=== PATIENT | female | born 1955 | race Two or more races ===

== ENCOUNTER → 2024-02-01 | Outpatient (CLI) | payer MEDICARE, MEDICAID, SELFPAY ==
--- NOTE | 2024-02-01 09:54 | XR_ITS ---
MRI shoulder, right, without contrast. Date and time: February 01, 2020 4:12 PM INDICATIONS: Right shoulder pain radiating to the right elbow 6 months Technique: Multiple axial, sagittal and coronal sections of the shoulder have been obtained. Siemens high-resolution 1.5 Aline MRI scanner is utilized. Axial fat-suppressed sections, TR 2350, TE 18 T2-weighted coronal fat-saturated images, TR 3500, TE 7100 T1-weighted coronal images, TR 500, TE 15 T2-weighted sagittal fat-saturated images, TR 3500, TE 57 T1-weighted sagittal sections, TR 504, TE 13. Findings: 14 mm full-thickness rotator cuff tear Subscapularis insertion is intact. Subscapularis bursa is evident. Long head of the biceps is in the bicipital groove. No definite tear of the biceps superior labral anchor is seen. Retraction of the musculotendinous junction of the rotator cuff is evident. Tendinosis pattern is moderate. Distance between the acromium and humeral head is 6 mm Atrophy of the supraspinatus muscle is severe. Atrophy of the infraspinatus muscle is moderate. Sagittal sections demonstrate a horizontal acromion. Acromioclavicular joint demonstrates moderate osteoarthritis. Osacromiale is not identified. Labral margins intact. Bony glenoid fossa on the sagittal sections does not demonstrate osseous defect. Occult fracture or area of avascular necrosis is not seen. Acromioclavicular joint separation is not visible. Defect in the posterolateral margin of the humeral head is not seen Impression: 14 mm full-thickness rotator cuff tear
== END | disposition home or self-care (01) ==
PROVIDERS: PCP Nurse Practitioner Primary Care; Referring Provider Nurse Practitioner Primary Care; Visit Provider Nurse Practitioner Primary Care
DX: M75.101 Unspecified rotator cuff tear or rupture of right shoulder, not specified as traumatic (principal)
CPT/HCPCS: 73221

== ENCOUNTER → 2024-06-05 | Outpatient (CLI) | payer MEDICARE, MEDICAID, SELFPAY ==
--- NOTE | 2024-06-05 12:05 | XR_ITS ---
Examination: Knee, right , 3 views Technique: Knee AP, lateral, oblique 3 views Date and time of exam: June 05, 2024 1421 hours INDICATIONS: Right knee pain beginning 3 years ago FINDINGS: Advanced tricompartment osteoarthritis, most severe medial joint space No fracture No patellar dislocation IMPRESSION: Advanced tricompartment osteoarthritis
== END | disposition home or self-care (01) ==
LOC: SDIA 11:52 → SDIM 06-06 09:34
PROVIDERS: PCP Nurse Practitioner Primary Care; Referring Provider Nurse Practitioner; Visit Provider Nurse Practitioner
DX: M17.11 Unilateral primary osteoarthritis, right knee (principal)
CPT/HCPCS: 73562

== ENCOUNTER 2024-08-18 12:03 | Emergency (ER) | payer MEDICARE, MEDICAID, SELFPAY ==
--- NOTE | 2024-08-18 12:11 | EKG_ITS ---
[facility] Test Date: 2024-08-18 Pat Name: MARGUERITE BORDEN Department: Room: - Gender: Female Skein Winder: : [id number] Requested By: Aris Mcdonald Order Number: [id number] Reading MD: Aris Mcdonald Measurements Intervals [place] Rate: 61 P: 89 MS: 167 QRS: -1 QRSD: 90 T: 9 QT: 397 QTc: 402 Interpretive Statements SINUS RHYTHM LOW QRS VOLTAGE IN PRECORDIAL LEADS [QRS DEFLECTION < 1.0 mV IN CHEST LEADS] VOLTAGE CRITERIA FOR LVH [MEETS CRITERIA IN ONE OF: R(aVL), S(V1), R(V5), R(V5/V6)+S(V1)] No previous ECG available for comparison /store/S0/[id number].pdf
[2024-08-18 12:32] VITALS: BP 160/81; PULSE 61; RESP 18; TEMP 36.7; O2SAT 97
--- NOTE | 2024-08-18 13:25 | XR_ITS ---
Examination: PA lateral chest 2 views TECHNIQUE: Upright PA lateral chest 2 views Date and time: August 18, 2024 1331 hours INDICATIONS: Chest pain today. FINDINGS: Minor subsegmental atelectasis left upper lobe Normal heart size No lobar pneumonia Moderate osteopenia IMPRESSION: Minor subsegmental atelectasis left upper lobe
--- NOTE | 2024-08-18 13:28 | PD.EDCHEST ---
ED Chest Pain RME/HPI General Chief Complaint: Chest Pain Stated Complaint: Chest pain to left arm, SOB X 2 hours Time Seen by Provider: 08/18/24 13:25 Arrival date/time: 08/18/24 12:03 RME / HPI RME / HPI narrative: 69-year-old female with a past medical history of hypertension and diabetes presents to the ED with a complaint of left anterior chest pain that occurred this morning at rest. She states she woke up normal without any pain and then developed a pressure type pain to the left anterior chest with radiation to the left shoulder and left arm. The pain was a 5?6/10 at its worst, lasting 1.5-2 hours, and is currently a 0/10. The pain is exacerbated by nothing and was alleviated after she took an aspirin and lifted her arm above her head. She denies any associated shortness of breath or nausea/vomiting. She denies any recent illness with fever, chills, cough, upper respiratory complaints, nausea or vomiting, diarrhea or abdominal pain. She denies any dysuria. She denies any previous occurrence of this type of pain. Related Data Home Medications ?Medication ?Instructions ?Recorded ?Confirmed aspirin 81 mg tablet,delayed 81 mg PO QDAY 02/26/20 02/26/20 release ertugliflozin 7.5 mg-metformin 1 tab PO BID 02/26/20 02/26/20 1,000 mg tablet (Segluromet) semaglutide 0.25 mg or 0.5 mg (2 0.25 mg subcut QWEEK 02/26/20 02/26/20 mg/1.5 mL) subcutaneous pen injector (Ozempic) Previous Rx's ?Medication ?Instructions ?Recorded buspirone 7.5 mg capsule 7.5 mg PO BID #20 caps 08/18/24 Allergies Allergy/AdvReac Type Severity Reaction Status Date / Time No Known Allergies Allergy Verified 08/18/24 12:08 Review of Systems Review of Systems Systems Reviewed: All systems reviewed, normal except as documented Past Medical History Past Medical History NEUROLOGIC: Negative Seizures CARDIAC: Negative Congestive Heart Failure RESPIRATORY: Negative Chronic Obstructive Pulmonary Disease (COPD) GENITOURINARY: Negative Renal Disease MUSCULOSKELETAL: Positive Arthritis ENDOCRINE: Positive Diabetes Mellitus Type 2; Negative Diabetes Mellitus Type 1 OTHER HISTORY: Negative Blood Transfusions, Blood Transfusion Reaction or Anesthesia Reactions Social History SMOKING STATUS: Never smoker ED Exam Narrative Physical exam: Alert and oriented, [place]an-speaking female, no acute distress. Vital signs blood pressure 160/81, pulse 61, respirations 18 and nonlabored, temperature 98.0, O2 sat 97% on room air. Lungs are clear, regular rate and rhythm without murmurs, no carotid bruits noted. No pain on palpation of the chest, no pain with AP or lateral chest compression. Abdomen is soft and nontender, no CVA tenderness. Moves all extremities well. Course Orders Category Date Time Status EKG (ED ONLY) *Do not use* NOW Care 08/18/24 12:11 Completed EKG (ED ONLY) *Do not use* NOW Care 08/18/24 17:37 Completed EKG (ED Only) Stat Exams 08/18/24 12:11 Draft EKG (ED Only) Stat Exams 08/18/24 17:36 Ordered XR chest 2V Stat Exams 08/18/24 13:25 Completed B-Type Natriuretic Peptide Stat Lab 08/18/24 13:43 Completed Beta Hydroxybutyrate Stat Lab 08/18/24 13:43 Completed CBC Stat Lab 08/18/24 13:43 Completed Comprehensive Metabolic Panel Stat Lab 08/18/24 13:43 Completed LDH (Lactate Dehydrogenase) Stat Lab 08/18/24 13:43 Completed Magnesium Stat Lab 08/18/24 13:43 Completed Partial Thromboplastin Time Stat Lab 08/18/24 13:43 Completed Prothrombin Time with INR Stat Lab 08/18/24 13:43 Completed Troponin I Stat Lab 08/18/24 13:43 Completed Urinalysis Stat Lab 08/18/24 15:08 Completed Morphine Inj Med 08/18/24 18:13 Discontinued 4 mg IM X1 ONE Vital Signs Vital signs: Vital Signs Temperature 98.0 F 08/18/24 12:32 Pulse Rate 61 08/18/24 12:32 Respiratory Rate 18 08/18/24 12:32 Blood Pressure 160/81 H 08/18/24 12:32 Pulse Oximetry (%) 97 08/18/24 12:32 Oxygen Delivery Method Room Air 08/18/24 12:32 Chest Pain MDM Narrative MDM Narrative:: 69-year-old female with a past medical history of hypertension and diabetes presents to the ED with a complaint of left anterior chest pain that occurred this morning at rest. She states she woke up normal without any pain and then developed a pressure type pain to the left anterior chest with radiation to the left shoulder and left arm. The pain was a 5?6/10 at its worst, lasting 1.5-2 hours, and is currently a 0/10. The pain is exacerbated by nothing and was alleviated after she took an aspirin and lifted her arm above her head. She denies any associated shortness of breath or nausea/vomiting. She denies any recent illness with fever, chills, cough, upper respiratory complaints, nausea or vomiting, diarrhea or abdominal pain. She denies any dysuria. She denies any previous occurrence of this type of pain. Alert and oriented, [place]an-speaking female, no acute distress. Vital signs blood pressure 160/81, pulse 61, respirations 18 and nonlabored, temperature 98.0, O2 sat 97% on room air. Lungs are clear, regular rate and rhythm without murmurs, no carotid bruits noted. No pain on palpation of the chest, no pain with AP or lateral chest compression. Abdomen is soft and nontender, no CVA tenderness. Moves all extremities well. Patient data External records reviewed:: None Clinical information provided by:: patient Social determinants that could affect healthcare access:: none Patient has the following chronic illnesses:: Diabetes, hypertension. How is presenting disease/condition affected by chronic disease/condition?: exacerbated by Evaluation data The following diagnostics were reviewed and interpreted by me:: lab results, radiology exam(s) and EKG tracing(s) Lab and/or radiology exams considered but not ordered:: N/A Medications / Prescriptions Medications or Prescriptions considered but not ordered:: Aspirin, nitro. Aspirin already taken at home. Nitro not given due to no current pain. Medication administrations:: Medication Administration History Discontinued Medications Morphine Sulfate (Morphine Sulf Inj 10 Mg/Ml Vial) 4 mg IM X1 ONE Stop: 08/18/24 18:14 Last Admin: 08/18/24 18:17 Dose: 4 mg Documented By: DAVID Diagnosis Chest Pain Differential Diagnosis: stable angina, unstable angina pectoris, atypical chest pain, st elevation myocardial infarction, costochondritis, chest pain and other (ACS) Discharge Plan Plan Patient Disposition: HOME (Self Care) Patient condition on transfer: Stable Prescriptions/Referrals Prescriptions/Med Rec: New buspirone 7.5 mg capsule 7.5 mg PO BID Qty: 20 0RF No Action aspirin 81 mg Tablet,Delayed Release (Dr/Ec) 81 mg PO QDAY Ozempic 0.25 mg or 0.5 mg(2 mg/1.5 mL) Pen Injector 0.25 mg SUBCUT QWEEK Segluromet 7.5-1,000 mg Tablet 1 tab PO BID Referrals: Bart BECKER),Key, DBA MANAGER [Primary Care Provider] - In 1 week Problem List Clinical Impression: Atypical chest pain, Costalchondritis Patient/Caregiver Discharge Instructions Education Materials: ED Chest Wall Pain, Costochondritis Print Language: Guinean Stand Alone Forms: [facility] Award Info., Patient Portal Info Letter
[2024-08-18 13:59] LABS: Basophils # (Auto) 0.1 Thou/mm3 (0.0-0.2); Basophils % (Auto) 1 % (0-2.5); Eosinophils # (Auto) 0.1 Thou/mm3 (0.0-0.5); Eosinophils % (Auto) 2 % (0-10); Hematocrit 42.2 % (36.0-46.0); Hemoglobin 14.4 g/dL (12.0-16.0); Immature Granulocytes % (Auto) 0 % (0-0); Immature Granulocytes Auto 0.01 Thou/mm3 (0.00-0.00); Lymphocytes # (Auto) 3.3 Thou/mm3 (1.0-4.8); Lymphocytes % (Auto) 46 % (10-50); Mean Corpuscular HGB Conc 34.1 g/dl (31.0-37.0); Mean Corpuscular Volume 91 fL (80-100); Monocytes # (Auto) 0.4 Thou/mm3 (0.0-0.8); Monocytes % (Auto) 6 % (0-12); Neutrophils # (Auto) 3.2 Thou/mm3 (1.8-7.7); Neutrophils % (Auto) 45 % (37-80); Nucleated Red Blood Cell % 0 /100 WBC (0); Platelet Count 212 Thou/mm3 (140-440); RDW Standard Deviation 41.9 fL (36.4-46.3); Red Blood Count 4.65 Miln/mm3 (4.00-5.20); White Blood Count 7.1 Thou/mm3 (3.6-11.0)
[2024-08-18 14:04] LABS: Beta Hydroxybutyrate 0.1 mmol/L (<0.6)
[2024-08-18 14:18] LABS: B-Type Natriuretic Peptide 38 pg/mL (0-100)
[2024-08-18 14:20] LABS: Alanine Aminotransferase 17 U/L (10-49); Albumin, Serum 4.5 gm/dL (3.4-4.8); Albumin/Globulin Ratio 1.7 (1.2-2.2); Alkaline Phosphatase 81 U/L (46-116); Anion Gap 6 (7-16); Aspartate Amino Transferase 18 U/L (0-34); BUN/Creatinine Ratio 14 Ratio (12-20); Bilirubin,Total 0.4 mg/dL (0.3-1.2); Blood Urea Nitrogen 10 mg/dL (9-23); Calcium 9.6 mg/dL (8.3-10.6); Calcium (Corrected) 9.6 mg/dL (8.5-10.1); Carbon Dioxide 27.1 mMol/L (20.0-31.0); Chloride 112 mMol/L (98-107); Creatinine (Component) 0.7 mg/dL (0.6-1.3); Globulin 2.7 gm/dL (2.3-3.5); Glucose 98 mg/dL (74-106); LDH (Lactate Dehydrogenase) 195 U/L (120-246); Magnesium 2.3 mg/dL (1.6-2.6); Osmolality,Calculated 287 (275-295); Potassium 4.2 mMol/L (3.4-5.1); Sodium 145 mMol/L (136-145); Total Protein 7.2 gm/dL (5.7-8.2); Troponin I < 0.002 ng/mL (0.0-0.045); eGFR > 60 See Note
[2024-08-18 14:23] LABS: Prothrombin Time 10.9 Seconds (9.0-12.2)
[2024-08-18 14:39] VITALS: BP 122/63; PULSE 59; RESP 15; TEMP 36.4; O2SAT 97
[2024-08-18 15:14] LABS: Collection Type, Urine Clean Catch
[2024-08-18 15:17] LABS: Amorphous Crystals,Urine Present (Absent); Bilirubin,Urine Negative (Negative); Blood,Urine Negative (Negative); Color,Urine Yellow (Lt Yel-Yel); Glucose, Urine Negative (Negative); Ketones,Urine Negative (Negative); Leukocyte Esterase,Urine Positive (Negative); Nitrite,Urine Negative (Negative); Protein,Urine Negative (Neg - Trace); RBC,Urine 10 /hpf (0-3); Specific Gravity,Urine 1.026 (1.001-1.035); Squamous Epithelial Cell,Urine 5 /hpf (0-5); Urobilinogen,Urine Negative mg/dL (0.0-1.0); WBC,Urine 46 /hpf (0-5)
[2024-08-18 15:22] VITALS: BMI 34.3
[2024-08-18 15:50] LABS: Clarity,Urine Hazy (Clear/Hazy)
[2024-08-18 16:46] VITALS: BP 99/86; PULSE 72; RESP 16; TEMP 36.3; O2SAT 99
[2024-08-18] MEDS: MORPHINE SULF INJ 10 MG/ML VIAL 4 MG IM (18:17)
== END 2024-08-18 18:33 | disposition home or self-care (01) ==
PROVIDERS: Physician Assistant; Emergency Provider Emergency Medicine; PCP Nurse Practitioner Primary Care
DX: M94.0 Chondrocostal junction syndrome [Tietze] (principal); R94.31 Abnormal electrocardiogram [ECG] [EKG]; I10 Essential (primary) hypertension
CPT/HCPCS: 36415; 71046; 80053; 81001; 82010; 83615; 83735; 83880; 84484; 85025; 85610; 85730; 93005; 96372; 99283; J2270

== ENCOUNTER 2024-09-02 09:29 | Outpatient (RCR) | payer MEDICARE, MEDICAID, SELFPAY ==
--- NOTE | 2024-09-02 10:41 | PT.OIERPT ---
PT OP Initial Eval Patient Information Outpatient Physical Therapy Treatment Date: 09/02/24 Visit Reasons: Right knee pain Medical Diagnosis: M17.11 Start of Care: 09/02/24 Date of Onset: 2 months ago Smoking Status Smoking Status: Never smoker Initial Assessment Subjective: Pt is 69 yr old greek speaking female who c/o R knee pain x4 yrs with worsening pain since about 2 months ago. She can ambulate for about 40 mins and does HH chores and gardening with pain. She limps on the R. PMH: DM, allergies Imaging: Xrays of R knee Advanced tricompartment osteoarthritis, most severe medial joint space Pt goal: less pain Objective: R knee ArOM: Extension: -11 deg Flexion: 118 deg SLR: 45 deg Strength: quads: 4-/5 HS: 4-/5 Gait: unsymmetrical, antalgic, decreased WB on R LE Assessment: Pt presentation consistent with Xrays of R knee which reveal advanced OA. Pt not likely going to benefit from skilled therapy to meet goals and may have more pain with therapy visits due to severity of ssx and has poor rehab potential. Pt was taught HEP and given printout. She may benefit from orthopedic evaluation. Short Term and Intermediate Goals Eval and D/C Treatment Plan Eval and D/C Certification Dates: 09/02/24 to 10/03/24 Procedure Charges OP PT Eval Mod Complex 30 minutes: Yes
== END 2024-09-18 23:59 | disposition home or self-care (01) ==
LOC: CPTX 09:29
PROVIDERS: PCP Nurse Practitioner Primary Care; Referring Provider Nurse Practitioner Primary Care; Visit Provider Nurse Practitioner Primary Care
DX: M25.561 Pain in right knee (principal); M17.11 Unilateral primary osteoarthritis, right knee
CPT/HCPCS: 97162